=== PATIENT | female | born 1985 | race Asian ===

== ENCOUNTER 2021-03-09 10:07 | Emergency (ER) | payer OTHER ==
--- NOTE | 2021-03-09 11:06 | EDM.PDOC ---
ED HPI GENERAL MEDICAL PROBLEM - General Chief Complaint: Respiratory Problem Stated Complaint: [facility] Time Seen by Provider: 03/09/21 10:58 Source of Information: Reports: Patient History Limitations: Reports: No Limitations - History of Present Illness INITIAL COMMENTS - FREE TEXT/NARRATIVE: Patient is a 35-year-old female with a past history of breast cancer presenting with a chief complaint of shortness of breath. Patient states she has not received any sort of treatment for breast cancer for the past 2 years besides tamoxifen. Patient states she started having symptoms of sore throat and congestion with mild dry cough on Tuesday. Symptoms gradually got worse. She was tested for Covid this morning and found that she was positive. Approximately 1 hour after receiving this diagnosis, the patient started feeling shortness of breath, tingling in her face and hands. She states she lied down on the ground outside of her car which made her feel somewhat better. She states she feels no difficulty breathing or chest pain at this time. She not had any chest pain at all during her symptoms. No interventions performed prior to arrival. Patient did receive Covid vaccination and booster. Denies history of DVT/PE. No lower extremity swelling or calf pain. - Related Data Allergies Allergy/AdvReac Type Severity Reaction Status Date / Time alcohol AdvReac Lethargy Verified 03/09/21 10:25 Home Meds: Home Meds Tamoxifen Citrate 20 mg PO DAILY 03/09/21 [History] Past Medical History - Infectious Disease History Infectious Disease History: Reports: Novel Coronavirus - Past Surgical History Female Surgical History: Reports: Breast Reconstruction, Mastectomy Social & Family History - Tobacco Use Tobacco Use Status *Q: Never Tobacco User - Recreational Drug Use Recreational Drug Use: No ED ROS GENERAL - Review of Systems Review Of Systems: See Below Free Text/Narrative/Comment: In addition to that documented in the HPI above, the additional ROS was obtaine d: Constitutional: Denies fevers or chills Eyes: Denies vision changes ENMT: Denies sore throat CV: Denies chest pain Resp: Per HPI GI: Denies vomiting or diarrhea : Denies painful urination MSK: Denies recent trauma Skin: Denies new rashes Neuro: Denies new numbness or tingling or weakness Endocrine: Denies unexpected weight loss Heme: Denies bleeding disorders ED EXAM, GENERAL - Physical Exam Exam: See Below Free Text/Narrative:: I have reviewed the triage vital signs Const: Well nourished, well developed, appears stated age Eyes: Pupils Equal and reactive to light bilaterally, no conjunctival injection HENT: No signs of trauma or swelling, Neck supple without meningismus CV: Regular Rate Rhythm, Warm, well-perfused extremities RESP: Unlabored respiratory effort GI: soft, non-tender, non-distended, no masses MSK: No gross deformities appreciated Skin: Warm, dry. No rashes Neuro: Alert, metal building assembler II-XII grossly intact. Sensation and motor function of extremities grossly intact. Psych: Appropriate mood and affect. #1 Interpretation EKG Date: 03/09/21 Time: 11:16 Rhythm: NSR Rate (Beats/Min): 80 [place]: Normal P-Wave: Present QRS: Normal ST-T: Normal QT: Normal Comparison: NA - No Prior EKG EKG Interpretation Comments: Normal EKG Course - Vital Signs Last Recorded V/S: Last Vital Signs Temp 36.2 C 03/09/21 10:20 Pulse 71 03/09/21 10:20 Resp 16 03/09/21 10:20 BP 109/81 03/09/21 10:20 Pulse Ox 100 03/09/21 10:20 - Orders/Labs/Meds Orders: Active Orders 24 hr Category Date Time Status EKG Documentation Completion [RC] STAT Care 03/09/21 10:57 Active Chest 1V Frontal [CR] Stat Exams 03/09/21 10:57 Taken Departure - Departure Time of Disposition: 11:21 Disposition: Home, Self-Care 01 Clinical Impression: COVID-19 - Discharge Information Referrals: PCP,None [Primary Care Provider] - Forms: ED Department Discharge Additional Instructions: I recommend continued isolation for the next several days. You should monitor your pulse oxygenation at home with a home pulse oximeter. Return to the emergency room if your oxygen levels are consistently below 90%. Otherwise, plan on following up with your primary care physician in the next 2 days. Return to the emergency room for any worsening symptoms or other emergent concerns. Sepsis Event Note (ED) - Evaluation Sepsis Screening Result: No Definite Risk - Focused Exam Vital Signs: Vital Signs Temp Pulse Resp BP Pulse Ox 03/09/21 10:20 36.2 C 71 16 109/81 100 - My Orders Last 24 Hours: My Active Orders 03/09/21 10:57 EKG Documentation Completion [RC] STAT Chest 1V Frontal [CR] Stat - Assessment/Plan Last 24 Hours: My Active Orders 03/09/21 10:57 EKG Documentation Completion [RC] STAT Chest 1V Frontal [CR] Stat Assessment:: 35-year-old female presented to the emergency room with complaint of shortness of breath. Asymptomatic during my evaluation and during the emergency room stay. Differential diagnosis considered for this patient include acute bacterial pneumonia, cardiac arrhythmia, pulmonary embolism, COVID-19. Patient is PERC negative. EKG is normal. Chest x-ray unremarkable. Likely etiology of shortness of breath is COVID-19 with possible component of anxiety. At this point, patient will be discharged with outpatient follow-up. No indication for further evaluation at this time. Return precautions discussed as usual. Patient agrees with plan of care.
--- NOTE | 2021-03-09 12:43 | CR ---
EXAM: XR CHEST 1 VIEW LOCATION: [facility] [place] DATE/TIME: 03/09/2021 10:59 AM INDICATION: Dyspnea COMPARISON: XR 05/09/2017 IMPRESSION: Cardiomediastinal silhouette is normal. Normal vasculature. Lungs and pleural spaces are clear. SIGNED BY: Joe Nunez MD 03/09/2021 12:45 PM MTDD
== END 2021-03-09 11:45 | disposition home or self-care (01) ==
LOC: JD.ED 10:07
DX: U07.1 COVID-19 (principal); Z91.048 Other nonmedicinal substance allergy status; Z86.16 Personal history of COVID-19
CPT/HCPCS: 71045; 71045-26; 93005; 99285-25